=== PATIENT | male | born 1940 | race Hispanic/Latino ===

== ENCOUNTER 2017-07-28 07:09 | Outpatient (CLI) | payer MEDICARE, OTHER ==
[2017-07-28 07:38] LABS: Blood Urea Nitrogen 22 mg/dL (9-20)
--- NOTE | 2017-07-28 17:11 | Cat Scan Report ---
CTA of the neck: Evidence of cerebral ischemia. Following intravenous injection of IV contrast rapid sequence imaging of the neck performed from the skull base to the upper chest with coronal and sagittal 2-D reformatted images as well as 3-D MIP reconstructions. There is heavy mural calcification involving the aortic arch. The bifurcation is patent although there is heavy calcification beginning at the bifurcation and extending into the proximal internal carotid artery with moderate narrowing estimated at 90+ percent. The more distal carotid is widely patent as it enters the skull. The origin of the external carotid artery is patent. There is heavy calcification at the origin of the left internal carotid artery with severe stenosis estimated at 90+ percent. This focal heavy plaque in the mid common carotid but no significant stenosis. There is heavy plaque which partially obscures the bifurcation however there appears to be a severe stenosis at the origin of the internal carotid artery of at least 90%. The more cephalad ICA is completely patent. The ECA is patent. There is heavy plaque at the origin of the left subclavian artery with segmental stenoses of 50-75%. There is diffuse atheromatous plaque in the proximal few centimeters of the right vertebral artery. The artery is also somewhat irregular in its contour but there is no significant stenosis identified. There is diffuse mural plaque in the proximal half of the left vertebral artery and the origin is obscured by plaque but there is no obstruction. Both vertebral arteries are patent to the basilar artery. The apophyseal joints are diffusely degenerative with bony proliferation throughout. C4-5 is partially stenosed and C5-6 is diffusely sclerotic with loss of the interspace and marked bony proliferation. Impression: 1. Severe bilateral ICA stenoses as detailed above. No occlusion. Evaluation is significantly compromised by the heavy plaque burden. 2. Possible significant stenosis at the proximal left vertebral artery with evaluation complicated by plaque. 3. 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 4. Significant degenerative cervical spine changes.
== END 2017-07-28 07:10 | disposition home or self-care (01) ==
LOC: CT 07:09
PROVIDERS: ATTEND Surgery Vascular Surgery
DX: M47.892 Other spondylosis, cervical region (principal); I65.23 Occlusion and stenosis of bilateral carotid arteries; I70.8 Atherosclerosis of other arteries
CPT/HCPCS: 36415; 70498; 82565; 84520; Q9967